=== PATIENT | male | born 1965 | race Caucasian/White ===

== ENCOUNTER → 2024-06-24 | Outpatient (CLI) | payer MEDICAID, SELFPAY ==
--- NOTE | 2024-06-24 09:05 | US_ITS ---
STUDY: ABDOMINAL ULTRASOUND - RIGHT UPPER QUADRANT; ELASTOGRAPHY REASON FOR VISIT: Male, 59 years old. Fatty infiltration of the liver. TECHNIQUE: Ultrasound evaluation of the right upper quadrant was performed with real-time and static chi-scale imaging. Point quantification shear wave elastography was performed ([employer]). TECHNICAL QUALITY: Adequate. COMPARISON: None. FINDINGS: Liver: The liver is enlarged and measures 20 cm. There is increased echogenicity consistent with fatty infiltration. The bile ducts are within normal limits. There is hepatic color flow. The direction of portal flow is hepatopetal. There is no demonstrated mass lesion. Median liver stiffness measured 9.2 kPa. Gallbladder: Normal distended gallbladder. The gallbladder wall measures 2.6 mm. There is a negative sonographic Batista''s sign. There is no pericholecystic fluid. There are no gallstones. Common Bile Duct (C.B.D.): The common bile duct measures 4.0 mm. Pancreas: The pancreas is not visualized due to overlying bowel gas. Right Kidney: Normal size of the right kidney. The right kidney measures 11 cm x 6.8 cm x 7 cm. Normal renal cortex. The right cortex measures 2.1 cm. There is no demonstrated renal mass or cyst. There is no right hydronephrosis. US/ABD Limited w/ Elastography IMPRESSION: 1. Liver stiffness measures 9.2 kPa compatible with F2-F3 (Mild to moderate liver fibrosis) Metavir score. 2. Hepatomegaly and fatty infiltration of the liver. Electronically Signed: Chad Johnson MD at 12:32 EST ,
== END | disposition home or self-care (01) ==
PROVIDERS: PCP Family Medicine; Referring Provider Nurse Practitioner Acute Care; Visit Provider Nurse Practitioner Acute Care
DX: E88.89 Other specified metabolic disorders (principal); R10.13 Epigastric pain; R93.89 Abnormal findings on diagnostic imaging of other specified body structures
CPT/HCPCS: 76705; 76981

== ENCOUNTER 2025-02-14 14:17 | Day surgery (SDC) | payer MEDICAID, SELFPAY ==
[2025-02-14] VITALS (8 sets, daily range): BP systolic 119–134; BP diastolic 90–99; PULSE 90–92; RESP 16; TEMP 36.3–36.4; O2SAT 95–98; BMI 29.2
[2025-02-14] MEDS: Lactated Ringers 1,000 ML 15 ML IV (14:47)
--- NOTE | 2025-02-14 14:52 | PCM.HP.STD ---
HPI - General General Date of Admission: 02/14/25 Date of Service: 02/14/25 Chief Complaint: Abdominal pain HPI Narrative VERNON BRANTLEY, is a 59 M who presents with the Chief Complaint: abdominal pain Details: He was seen in ED for c/o abdominal pain and CT was revealing for jejuno-jejunal intussuception on 09/29/2023, he was again seen in ED on 10/04/[address] at that time revealed resolution of intussuception. CT was also revealing for mild circumferential thickening of the lower esophagus suggestive of chronic reflux esophagitis, possible small gastric diverticulum. As well as hepatic steatosis. PMH is significant for TBI and he resides in a [facility]. 10/04/2023 CT No acute abnormalities within the abdomen or pelvis. The previously described jejuno-jejunal intussusception is no longer visualized. 09/29/2023 CT Diffuse hypoattenuation the liver suggestive of hepatic steatosis. Circumferential thickening of the imaged lower esophageal wall is most consistent with chronic reflux esophagitis. Within the mid small bowel, jejunum in the left hemiabdomen, there is a targetoid appearance of the bowel measuring approximately 4.4 cm - denies any weight loss - denies any N/V - denies any HB - denies any dysphagia - denies any pain - denies any diarrhea or constipation - denies any changes in appetite - sister - POA - Debbie - reports a h/o drinking a 6 pack of beer or more a day - denies any h/o NC or CVA - denies any lung disease LABS 10/04/2023 Glucose 255, otherwise CMP, CBC and Lipase unremarkable RECOMMEND Elastography Hep Labs EGD and Colonoscopy (PLETAL obtain approval to hold 7d prior to procedure) [facility] Medical History Schizophrenia Dementia Depression Anxiety Substance abuse Insulin dependent diabetes mellitus Diabetes Hepatitis Injury of head and neck TIA (transient ischemic attack) Former smoker Hypertension Personal history of traumatic brain injury Chronic obstructive pulmonary disease, unspecified Generalized anxiety disorder Alzheimer's disease with late onset Impulse disorder, unspecified Peripheral vascular disease, unspecified Hypertensive heart disease without heart failure Insomnia Alcohol abuse Type 2 diabetes mellitus Constipation, unspecified Chronic viral hepatitis C Bipolar disorder, unspecified Opioid dependence, uncomplicated Paranoid schizophrenia Diffuse traumatic brain injury with loss of consciousness of unspecified duration, sequela Home Medications ?Medication ?Instructions ?Recorded ?Last Taken ?Type allopurinol 100 mg tablet 100 mg PO QDAY 04/28/24 Unknown History aripiprazole 10 mg tablet (Abilify) 10 mg PO QDAY 04/28/24 Unknown History aspirin 81 mg tablet,delayed 81 mg PO QDAY 04/28/24 Unknown History release (Adult Aspirin Regimen) atorvastatin 40 mg tablet 40 mg PO QHS 04/28/24 Unknown History bisacodyl 10 mg rectal suppository 10 mg DE QDAY PRN constipation 04/28/24 Unknown History (Dulcolax (bisacodyl)) budesonide-formoterol HFA 80 2 puff inhalation BID 04/28/24 Unknown History mcg-4.5 mcg/actuation aerosol inhaler (Symbicort) calcium carbonate (Calcium 500) 1,000 mg PO QDAY PRN REFLUX 04/28/24 Unknown History cholecalciferol (vitamin D3) 50 50 mcg PO SA 04/28/24 Unknown History mcg (2,000 unit) capsule cilostazol 100 mg tablet 100 mg PO BID 04/28/24 Unknown History clonazepam 1 mg tablet 1 mg PO TID 04/28/24 Unknown History dulaglutide 4.5 mg/0.5 mL 4.5 mg subcut MORELOS 04/28/24 01/19/25 History [facility] Held on 02/12/25. Instructions: ON HOLD SINCE 01/19/2025 FOR PROCEDURE-PER NURSE duloxetine 60 mg capsule,delayed 60 mg PO QDAY 04/28/24 Unknown History release insulin glargine 100 unit/mL (3 25 unit subcut HS 04/28/24 Unknown History mL) subcutaneous pen (Lantus Solostar U-100 Insulin) ipratropium 0.5 mg-albuterol 3 mg 3 ml inhalation Q4-6H PRN 04/28/24 Unknown History (2.5 mg base)/3 mL nebulization shortness of breath or wheezing soln lisinopril 2.5 mg tablet 2.5 mg PO QDAY 04/28/24 Unknown History magnesium hydroxide 400 mg/5 mL 30 ml PO QDAY PRN constipation 04/28/24 Unknown History oral suspension (Milk of Magnesia) melatonin 3 mg capsule 3 mg PO HS 04/28/24 Unknown History metformin 1,000 mg tablet 1,000 mg PO BID 04/28/24 Unknown History metoprolol succinate 25 mg 25 mg PO QDAY 04/28/24 Unknown History tablet,extended release 24 hr metronidazole 0.75 % topical gel 1 applic topical BID PRN SKIN 04/28/24 Unknown History multivitamin 1 tab PO QDAY 04/28/24 Unknown History pantoprazole 40 mg tablet,delayed 40 mg PO BID 04/28/24 Unknown History release (Protonix) polyethylene glycol 3350 17 17 g PO DAILY 04/28/24 Unknown History gram/dose oral powder (Miralax) quetiapine 100 mg tablet (Seroquel) 100 mg PO BID 04/28/24 Unknown History trazodone 50 mg tablet 50 mg PO QHS 04/28/24 Unknown History gabapentin 600 mg tablet 600 mg PO TID 05/23/24 Unknown History gemfibrozil 600 mg tablet 600 mg PO BID 05/23/24 Unknown History acetaminophen 500 mg tablet 500 mg PO TID 10/17/24 Unknown History (Acetaminophen Extra Strength) guaifenesin 100 mg/5 mL oral syrup 200 mg PO Q6H PRN cough 10/17/24 Unknown History Allergy/AdvReac Type Severity Reaction Status Date / Time cephalexin Allergy Other Verified 10/17/24 09:43 Social History Smoking Status: Current every day smoker tobacco type: cigarettes ROS Constitutional Constitutional: Denies fatigue, fever(s), poor appetite, weight gain or weight loss Gastrointestinal Gastrointestinal: Denies belching, bloating, change in bowel habits, change in stool character, chewing difficulty, coffee ground emesis, constipation, cramping, diarrhea, dyspepsia, dysphagia, early satiety, excessive flatus, fecal incontinence, heartburn, hematemesis, hematochezia, hemorrhoids, loose stools, melena, nausea, odynophagia, rectal bleeding, tenesmus, vomiting or weight changes Physical Exam Const alert, oriented x3, no apparent distress and healthy appearing General Appearance: cooperative GI normal to inspection, nondistended, normoactive bowel sounds, soft to palpation, non-tender and non-distended Percussion: normal to percussion Rectal Exam: deferred Assessment & Plan Assessment/Plan (1) Hepatomegaly: (2) Steatosis of liver: (3) Abnormal finding on imaging: (4) Epigastric pain: (5) Steatosis: PLAN: Assessment and Plan Assessment and Plan (1) Abdominal pain: Qualifiers: Abdominal location: epigastric Qualified Code(s): R10.13 - Epigastric pain (2) Steatosis: Status: Acute (3) Epigastric pain: Status: Acute (4) Abnormal finding on imaging: Status: Acute Orders: Orders ABD Limited w/ Elastography Today E88.89 - Other specified metabolic disorders, R10.13 - Epigastric pain, R93.89 - Abnormal findings on diagnostic imaging of other specified body structures Hepatitis A AB, Total Today E88.89 - Other specified metabolic disorders, R10.13 - Epigastric pain, R93.89 - Abnormal findings on diagnostic imaging of other specified body structures Hepatitis B Core Ab Total Today E88.89 - Other specified metabolic disorders, R10.13 - Epigastric pain, R93.89 - Abnormal findings on diagnostic imaging of other specified body structures Hepatitis B Surface Antibody Today E88.89 - Other specified metabolic disorders, R10.13 - Epigastric pain, R93.89 - Abnormal findings on diagnostic imaging of other specified body structures Hepatitis B Surface Antigen Today E88.89 - Other specified metabolic disorders, R10.13 - Epigastric pain, R93.89 - Abnormal findings on diagnostic imaging of other specified body structures Hepatitis C Antibody Today E88.89 - Other specified metabolic disorders, R10.13 - Epigastric pain, R93.89 - Abnormal findings on diagnostic imaging of other specified body structures EGD 6 Weeks E88.89 - Other specified metabolic disorders, R10.13 - Epigastric pain, R93.89 - Abnormal findings on diagnostic imaging of other specified body structures Plan 59y/o male presents for consultation of abdominal pain. He was seen in ED for c/o abdominal pain and CT was revealing for jejuno-jejunal intussuception on 09/29/2023, he was again seen in ED on 10/04/[address] at that time revealed resolution of intussuception. CT was also revealing for mild circumferential thickening of the lower esophagus suggestive of chronic reflux esophagitis, possible small gastric diverticulum. As well as hepatic steatosis. PMH is significant for TBI and he resides at [facility]. He presently denies any abdominal pain, weight loss, N/V or change in bowel habits. Denies any HB or dysphagia and reports no changes with PO intake. Abdominal exam today is remarkable for epigastric tenderness. I recommend he continue pantoprazole 40mg daily and schedule EGD. In terms of liver steatosis, I recommend Elastography and Hepatitis panel with vaccination for HAV and HBV if Ab are nul. He should return to ED with any recurrent acute abdominal pain. I did attempt to contact Debbie (SERGO) during OV today and there as no answer. 1. EGD 2. Obtain approval to hold Pletal (cilostazol) 5-7 days prior to EGD 3. Continue pantoprazole 40mg daily 4. Elastography 5. Hepatitis Panel 6. Follow-up in 3 months Plan Details Follow Up: 3 Months
--- NOTE | 2025-02-14 14:59 | PCM.PRE.AN2 ---
ASA Classification* ASA Classification ASA Classification: 3 Assessment & Plan Anesthesia* Anesthesia Assessment Anesthesia Assessment: Discussed sedation and/or anesthesia options, risks, benefits, and alternatives with patient/parents/legal guardian/POA. Questions invited. The patient/parents/legal guardian/POA seems to understand and agrees to proceed with anesthesia plan. Reviewed the physical assessment, medical history, allergy history and patient home medications list prior to surgery/procedure/anesthetic and documented any changes. Performed airway and anesthesia risk assessments. Anesthesia Type Anesthesia Type: MAC History Source History Obtained from:: Patient and Chart Anesthesia Focused Assessment* Temperature: 97.6 F Pulse Rate: 90 Blood Pressure: 120/96 Respiratory Rate: 16 Pulse Ox: 97 Oxygen Delivery Method: Room Air Airway Assessment Mouth opens: >3 cm Mallampati Score: II Teeth Condition: Dentures (Edentulous) Neck Range of motion (ROM): Limited ROM Labs Anesthesia Preop lab: CBC WBC 8.4 k/mm3 (4.4-11.0) 03/17/13 11:42 03/17/13 RBC 4.97 M/mm3 (4.6-6.2) 03/17/13 11:42 03/17/13 Hgb 16.2 g/dl (13.0-16.5) 03/17/13 11:42 03/17/13 Hct 45.6 % (40-54) 03/17/13 11:42 03/17/13 Plt Count 243 K/mm3 (150-450) 03/17/13 11:42 03/17/13 CHEMISTRY Potassium 4.2 mmol/L (3.5-5.1) 03/17/13 11:42 03/17/13 Sodium 137 mmol/L (136-145) 03/17/13 11:42 03/17/13 BUN 10 mg/dL (7-18) 03/17/13 11:42 03/17/13 Creatinine 0.8 mg/dL (0.8-1.3) 03/17/13 11:42 03/17/13 Glucose 104 mg/dL (70-110) 03/17/13 11:42 03/17/13 COAG Pre-Assessment Diagnosis/Proposed Procedure Planned Operative Procedure(s): EGD Anesthesia History Anesthesia History - casting and locker room servicer: Anesthesia History - casting and locker room servicer Hx Hospitalization Any Problems With Anesthesia Cholinesterase deficiency You/Your Family Experience fever (hyperthermia) with Relationship Recent Exposure to Contagious No 02/14/25 14:55 Disease Does patient have nerve No 02/13/25 08:31 stimulator Patient instructed to have device shut off --Does patient have Pacemaker No 02/14/25 14:55 or ICD? When Was Last Pacemaker Check QUESTION #4 FULL TEXT: You/Your Family Experience fever (hyperthermia) with Anesthesia Last Oral Intake Last Oral intake: Last Oral Intake NPO since 20:00 02/14/25 14:55 Meds taken in AM with sips of water? Meds patient instructed to take am of surgery PONV PONV - casting and locker room servicer: PONV - casting and locker room servicer Female No 02/13/25 08:31 HX of Motion Sickness No 02/13/25 08:31 HX of N/V After Surgery No 02/13/25 08:31 Non-Smoker No 02/13/25 08:31 Duration of Surgery greater No 02/13/25 08:31 than 60 minutes Number of Risk Factors PONV Score Height & Weight Height & Weight: Anesthesia: Height & Weight Height 5 ft 9 in 02/14/25 14:55 Weight: 90 kg 02/14/25 14:55 Body Mass Index (BMI) 29.2 02/14/25 14:55 Respiratory Assessment Respiratory Assessment - casting and locker room servicer: Respiratory Tract Infection Hx - casting and locker room servicer Hx Respiratory Tract Infection No 02/13/25 08:31 STOP Sleep Apnea STOP Sleep Apnea - casting and locker room servicer: STOP Sleep Apnea - casting and locker room servicer Hx Hypertension Yes 02/13/25 08:31 Hx Sleep Apnea No 02/13/25 08:31 CPAP BIPAP Do you snore loudly (louder No 02/13/25 08:31 than talking or can be heard Do you often feel tired/ No 02/13/25 08:31 fatigued/ sleepy during daytime? Has anyone observed you stop No 02/13/25 08:31 breathing during sleep? STOP Results Negative 02/13/25 08:31 QUESTION #5 FULL TEXT : Do you snore loudly (louder than talking or can be heard through closed doors)? Tobacco Use History Tobacco Use History - casting and locker room servicer: Tobacco Use History - casting and locker room servicer Tobacco Use Smoking Status Current every day smoker 02/13/25 08:31 Hx Tobacco Use Yes 02/13/25 08:31 Years Smoking Packs Smoked per Day Smoking Cessation Date was within the last 15 years Hx Smoking Cessation Date Hx Smoking Cessation Counseling Hematologic Medial History Hematologic Hx - casting and locker room servicer: Hematologic Medical Hx - identification clerk Hx of Blood Transfusion No 02/13/25 08:31 Hx of Transfusion in last 3 No 02/13/25 08:31 Months Date of Last Transfusion (if within last 3 months) Ever experience any problems No 02/13/25 08:31 with transfusion(s)? Specify any problems Hx of Preganancy in last 3 N/A 02/13/25 08:31 Months Nurse Filling Out Transfusion VCHRISTIN 02/13/25 08:31 & Questions: Date: 02/13/25 02/13/25 08:31 Time: 08:32 02/13/25 08:31 Patient unable to answer at this time (ie. confused, unrespo /Reproduction History /Reproductive History - casting and locker room servicer: /Reproductive Hx- casting and locker room servicer Hx Now Gestational Age (in weeks): EDC: Hx Hx Para Hx Section SAB Active Medications Active Medications: Current Medications Generic Name Dose Route Start Last Admin Trade Name Freq PRN Reason Stop Dose Admin Lactated Ringer's 1,000 mls @ 15 mls/hr 02/14/25 14:30 02/14/25 14:47 IV 15 mls/hr .Q48H MISSAEL Administration PFSH Medical History Schizophrenia Dementia Depression Anxiety Substance abuse Insulin dependent diabetes mellitus Diabetes Hepatitis Injury of head and neck TIA (transient ischemic attack) Former smoker Hypertension Personal history of traumatic brain injury Chronic obstructive pulmonary disease, unspecified Generalized anxiety disorder Alzheimer's disease with late onset Impulse disorder, unspecified Peripheral vascular disease, unspecified Hypertensive heart disease without heart failure Insomnia Alcohol abuse Type 2 diabetes mellitus Constipation, unspecified Chronic viral hepatitis C Bipolar disorder, unspecified Opioid dependence, uncomplicated Paranoid schizophrenia Diffuse traumatic brain injury with loss of consciousness of unspecified duration, sequela Home Medications ?Medication ?Instructions ?Recorded ?Last Taken ?Type allopurinol 100 mg tablet 100 mg PO QDAY 04/28/24 Unknown History aripiprazole 10 mg tablet (Abilify) 10 mg PO QDAY 04/28/24 Unknown History aspirin 81 mg tablet,delayed 81 mg PO QDAY 04/28/24 Unknown History release (Adult Aspirin Regimen) atorvastatin 40 mg tablet 40 mg PO QHS 04/28/24 Unknown History bisacodyl 10 mg rectal suppository 10 mg NV QDAY PRN constipation 04/28/24 Unknown History (Dulcolax (bisacodyl)) budesonide-formoterol HFA 80 2 puff inhalation BID 04/28/24 Unknown History mcg-4.5 mcg/actuation aerosol inhaler (Symbicort) calcium carbonate (Calcium 500) 1,000 mg PO QDAY PRN REFLUX 04/28/24 Unknown History cholecalciferol (vitamin D3) 50 50 mcg PO SA 04/28/24 Unknown History mcg (2,000 unit) capsule cilostazol 100 mg tablet 100 mg PO BID 04/28/24 Unknown History clonazepam 1 mg tablet 1 mg PO TID 04/28/24 Unknown History dulaglutide 4.5 mg/0.5 mL 4.5 mg subcut MORELOS 04/28/24 01/19/25 [facility] Held on 02/12/25. Instructions: ON HOLD SINCE 01/19/2025 FOR PROCEDURE-PER NURSE duloxetine 60 mg capsule,delayed 60 mg PO QDAY 04/28/24 Unknown History release insulin glargine 100 unit/mL (3 25 unit subcut HS 04/28/24 Unknown History mL) subcutaneous pen (Lantus Solostar U-100 Insulin) ipratropium 0.5 mg-albuterol 3 mg 3 ml inhalation Q4-6H PRN 04/28/24 Unknown History (2.5 mg base)/3 mL nebulization shortness of breath or wheezing soln lisinopril 2.5 mg tablet 2.5 mg PO QDAY 04/28/24 Unknown History magnesium hydroxide 400 mg/5 mL 30 ml PO QDAY PRN constipation 04/28/24 Unknown History oral suspension (Milk of Magnesia) melatonin 3 mg capsule 3 mg PO HS 04/28/24 Unknown History metformin 1,000 mg tablet 1,000 mg PO BID 04/28/24 Unknown History metoprolol succinate 25 mg 25 mg PO QDAY 04/28/24 Unknown History tablet,extended release 24 hr metronidazole 0.75 % topical gel 1 applic topical BID PRN SKIN 04/28/24 Unknown History multivitamin 1 tab PO QDAY 04/28/24 Unknown History pantoprazole 40 mg tablet,delayed 40 mg PO BID 04/28/24 Unknown History release (Protonix) polyethylene glycol 3350 17 17 g PO DAILY 04/28/24 Unknown History gram/dose oral powder (Miralax) quetiapine 100 mg tablet (Seroquel) 100 mg PO BID 04/28/24 Unknown History trazodone 50 mg tablet 50 mg PO QHS 04/28/24 Unknown History gabapentin 600 mg tablet 600 mg PO TID 05/23/24 Unknown History gemfibrozil 600 mg tablet 600 mg PO BID 05/23/24 Unknown History acetaminophen 500 mg tablet 500 mg PO TID 10/17/24 Unknown History (Acetaminophen Extra Strength) guaifenesin 100 mg/5 mL oral syrup 200 mg PO Q6H PRN cough 10/17/24 Unknown History Allergy/AdvReac Type Severity Reaction Status Date / Time cephalexin Allergy Other Verified 02/14/25 14:59 Social History Smoking Status: Current every day smoker tobacco type: cigarettes Review of Systems (Anesthesia) ROS Narrative System reviewed and no additional complaints, except as documented.
--- NOTE | 2025-02-14 15:15 | EGD_PTH ---
PATIENT: VERNON BRANTLEY LOC: EN U#:[id number] AGE/SX: 59/M ROOM: RE02/14/[address]: Dr. Dejuan Singh DO : 1965 BED: DIS: 02/14/2025 SPEC #: [id number] RECD: 02/14/25 17:03 STATUS: RICHARD YULIANA #: [id number] MELANIE: 02/14/25 15:[address]: Dejuan Singh DEPT: SURGICAL PATHOLOGY RECD BY: Erick Alvarez ENTERED: 02/15/25 10:40 SP TYPE: EGD BIOPSY SHITAL DR: Dr. Russel Ibarra MD Tissues: A - Gastric mucous membrane B - Gastric mucous membrane Procedures: Surgery Specimen Level IV HEADER OPERATION: EGD with biopsies PRE-OP DIAGNOSIS: Epigastric pain TISSUE SUBMITTED: A- Gastric body biopsy, B- Gastric antrum biopsy MICROSCOPIC DIAGNOSIS A. Gastric body, biopsy: - Oxyntic mucosa with a few mildly dilated fundic glands. - Negative for Helicobacter-like organisms (H&E). B. Gastric antrum, biopsy: - Oxyntic mucosa with slight chronic inflammation. - Negative for Helicobacter-like organisms (H&E). MICROSCOPIC DESCRIPTION Slides are reviewed. GROSS DESCRIPTION A. Received in fixative is one container labeled with the patient's name and designated Gastric body biopsy. The specimen consists of four irregular fragments of light [place] soft tissue that measure 0.1 to 0.6 cm. The specimen is totally submitted in one cassette. B. Received in fixative is one container labeled with the patient's name and designated Gastric antrum biopsy. The specimen consists of two irregular fragments of light [place] soft tissue that measure 0.4 and 0.6 cm. The specimen is totally submitted in one cassette. DC 02/15/2025 CPT:51670o9
--- NOTE | 2025-02-14 15:39 | OP.EGD_ITS ---
Patient Name: Iraj Odonnell Procedure Date: 02/14/2025 3:23 PM Date of : 1965 Age: 59 Procedure: Upper GI endoscopy Indications: Functional Dyspepsia Providers: Dejuan Singh DO Medicines: Monitored Anesthesia Care Patient Profile: This is a 59 year old male. Refer to note in patient chart for documentation of history and physical. Patient has symptoms of chronic abdominal cramping, acute epigastric abdominal pain, chronic dyspepsia and chronic nausea. Complications: No immediate complications. Procedure: Pre-Anesthesia Assessment: - Prior to the procedure, a History and Physical was performed, and patient medications and allergies were reviewed. The patient is competent. The risks and benefits of the procedure and the sedation options and risks were discussed with the patient. All questions were answered and informed consent was obtained. Patient identification and proposed procedure were verified by the physician in the pre-procedure area. Mental Status Examination: alert and oriented. Airway Examination: normal oropharyngeal airway and neck mobility. Respiratory Examination: clear to auscultation. CV Examination: normal. Prophylactic Antibiotics: The patient does not require prophylactic antibiotics. Prior Anticoagulants: The patient has taken no anticoagulant or antiplatelet agents except for NSAID medication. ASA Grade Assessment: II - A patient with mild systemic disease. After reviewing the risks and benefits, the patient was deemed in satisfactory condition to undergo the procedure. The anesthesia plan was to use monitored anesthesia care (MAC). Immediately prior to administration of medications, the patient was re-assessed for adequacy to receive sedatives. The heart rate, respiratory rate, oxygen saturations, blood pressure, adequacy of pulmonary ventilation, and response to care were monitored throughout the procedure. The physical status of the patient was re-assessed after the procedure. After obtaining informed consent, the endoscope was passed under direct vision. Throughout the procedure, the patient's blood pressure, pulse, and oxygen saturations were monitored continuously. The Endoscope was introduced through the mouth, and advanced to the fourth part of the duodenum. Small bowel enteroscopy was deemed necessary. The upper GI endoscopy was accomplished with ease. Scope In: 3:33:08 PM Scope Out: 3:34:48 PM Total Procedure Duration Time 0 hours 1 minute 40 seconds Findings: The examined esophagus was normal. Diffuse prominent gastric folds were found in the entire examined stomach. Biopsies were taken with a cold forceps for histology. Verification of patient identification for the specimen was done. Estimated blood loss was minimal. Biopsies were taken with a cold forceps for Helicobacter pylori testing. Verification of patient identification for the specimen was done. Estimated blood loss was minimal. No gross lesions were noted in the entire examined duodenum. Impression: - Normal esophagus. - Enlarged gastric folds. Biopsied. - No gross lesions in the entire examined duodenum. Recommendation: - Discharge patient to home. - Resume previous diet. - Continue present medications. - Await pathology results. Procedure Code(s): --- Professional --- 23558, Small intestinal endoscopy, enteroscopy beyond second portion of duodenum, not including ileum; with biopsy, single or multiple CPT copyright 2021 [employer]. All rights reserved. The codes documented in this report are preliminary and upon shoe shiner review may be revised to meet current compliance requirements. Dejuan Singh DO 02/14/2025 3:38:51 PM This report has been signed electronically. Number of Addenda: 0 Note Initiated On: 02/14/2025 3:23 PM
--- NOTE | 2025-02-14 15:39 | OP.PROVAT_ITS ---
02/14/2025 Jay Ibarra Re : Upper GI endoscopy procedure for Iraj Odonnell Dear Stacey This procedure was performed on Friday, February 14, 2025. My impressions and recommendations are as follows: Impressions : - Normal esophagus. - Enlarged gastric folds. Biopsied. - No gross lesions in the entire examined duodenum. Recommendations : - Discharge patient to home. - Resume previous diet. - Continue present medications. - Await pathology results. My findings are described in the full procedure note, which is enclosed. If I can be of further assistance, please feel free to contact me at . Sincerely, Dejuan Singh DO 02/14/2025 3:38:51 PM This report has been signed electronically.
--- NOTE | 2025-02-14 15:42 | PCM.POST.ANE ---
Anesthesia: Postop Eval I Current Vital Signs Temperature: 97.3 F Pulse Rate: 90 Blood Pressure: 134/90 Respiratory Rate: 16 Pulse Ox: 98 Oxygen Delivery Method: Room Air Assessment Airway patent: Yes Spontaneous unlabored respirations: Yes Mental status: Awake and Calm nausea: No Vomiting: No Anesthesia Complication: No Fluid Hydration Crystalloid volume administer (ml): 200 Total IV fluid infused: 200 Progress Note Anesthesia document: Postop Eval 1 completed: Yes
--- NOTE | 2025-02-14 16:32 | POSTOPAN2_ITS ---
Anesthesia Postop Eval I Sum Postop Eval Completion status Anesthesia document: Postop Eval 1 completed: Yes Anesthesia Postop Eval I Summary Anesthesia Postop Eval I Summary: Anesthesia Postop Eval I: Assessment Summary Airway patent Yes 02/14/25 15:42 COMPUTER INFORMATION SYSTEMS [email or web address].[email or web address] Spontaneous unlabored Yes 02/14/25 15:42 COMPUTER INFORMATION SYSTEMS [email or web address].[email or web address] respirations Mental status Awake,Calm 02/14/25 15:42 COMPUTER INFORMATION SYSTEMS PROFESSOR.[email or web address] nausea No 02/14/25 15:42 COMPUTER INFORMATION SYSTEMS PROFESSOR.[email or web address] Vomiting No 02/14/25 15:42 COMPUTER INFORMATION SYSTEMS PROFESSOR.[email or web address] Anesthesia Postop Eval I: Fluid Summary Crystalloid volume administer 200 02/14/25 15:42 COMPUTER INFORMATION SYSTEMS [email or web address].[email or web address] (ml) Colloids volume administered ( ml) Blood Product volume administered (ml) Total IV fluid infused 200 02/14/25 15:42 COMPUTER INFORMATION SYSTEMS PROFESSOR.[email or web address] Anesthesia Postop Eval I: Summary Notes Anesthesia Complication No 02/14/25 15:42 COMPUTER INFORMATION SYSTEMS PROFESSOR.[email or web address] Anesthesia Complication Comment: Post-operative progress note Anesthesia: Postop Eval II Evaluation Mental status: Awake Pain Level: 0 nausea: No Vomiting: No
--- NOTE | 2025-02-14 16:32 | PCM.POSTANE2 ---
Anesthesia Postop Eval I Sum Postop Eval Completion status Anesthesia document: Postop Eval 1 completed: Yes Anesthesia Postop Eval I Summary Anesthesia Postop Eval I Summary: Anesthesia Postop Eval I: Assessment Summary Airway patent Yes 02/14/25 15:42 FURNACE CHARGING MACHINE OPERATOR.[email or web address] Spontaneous unlabored Yes 02/14/25 15:42 FURNACE CHARGING MACHINE OPERATOR.[email or web address] respirations Mental status Awake,Calm 02/14/25 15:42 FURNACE CHARGING MACHINE OPERATOR.[email or web address] nausea No 02/14/25 15:42 FURNACE CHARGING MACHINE OPERATOR.[email or web address] Vomiting No 02/14/25 15:42 FURNACE CHARGING MACHINE OPERATOR.[email or web address] Anesthesia Postop Eval I: Fluid Summary Crystalloid volume administer 200 02/14/25 15:42 FURNACE CHARGING MACHINE OPERATOR.[email or web address] (ml) Colloids volume administered ( ml) Blood Product volume administered (ml) Total IV fluid infused 200 02/14/25 15:42 FURNACE CHARGING MACHINE OPERATOR.[email or web address] Anesthesia Postop Eval I: Summary Notes Anesthesia Complication No 02/14/25 15:42 FURNACE CHARGING MACHINE OPERATOR.[email or web address] Anesthesia Complication Comment: Post-operative progress note Anesthesia: Postop Eval II Evaluation Mental status: Awake Pain Level: 0 nausea: No Vomiting: No
== END 2025-02-14 16:19 | disposition home or self-care (01) ==
LOC: EN 14:23 → AC 14:23
PROVIDERS: PCP Family Medicine; Referring Provider Family Medicine; Visit Provider Internal Medicine Gastroenterology
PROC: 0DJ08ZZ Inspection of Upper Intestinal Tract, Via Natural or Artificial Opening Endoscopic (ICD-10-PCS; CPT 43235; principal; 2025-02-14 15:10)
DX: K29.50 Unspecified chronic gastritis without bleeding (principal); F20.0 Paranoid schizophrenia; F31.9 Bipolar disorder, unspecified; J44.9 Chronic obstructive pulmonary disease, unspecified; E11.9 Type 2 diabetes mellitus without complications; Z79.4 Long term (current) use of insulin; K76.0 Fatty (change of) liver, not elsewhere classified; I10 Essential (primary) hypertension; F41.1 Generalized anxiety disorder; G47.00 Insomnia, unspecified; F17.210 Nicotine dependence, cigarettes, uncomplicated; Z86.73 Personal history of transient ischemic attack (TIA), and cerebral infarction without residual deficits; Z79.51 Long term (current) use of inhaled steroids; Z79.82 Long term (current) use of aspirin; Z79.85 Long-term (current) use of injectable non-insulin antidiabetic drugs; Z79.899 Other long term (current) drug therapy; Z79.84 Long term (current) use of oral hypoglycemic drugs
CPT/HCPCS: 44361; 82962; 88305; J2405

== ENCOUNTER → 2025-03-13 | Outpatient (CLI) | payer MEDICAID, SELFPAY ==
[2025-03-13 10:30] LABS: Hematocrit 40.5 % (40-54); Hemoglobin 13.7 g/dL (13.0-16.5); Immature Granulocytes Count 0.020 X10^3/uL (0.0-0.0); Mean Corp Hgb Conc 33.8 g/dL (32-36); Mean Corpuscular Volume 87.9 fL (80-94); Mean Platelet Vol. 9.8 fl (6.2-12.0); NRBC Flagged by Analyzer 0 % (0-5); Platelet Count 299 K/mm3 (150-450); RBC Distribution Width CV 13.2 % (11.6-14.6); RBC Distribution Width SD 42.4 fl (35.1-43.9); Red Blood Count 4.61 M/mm3 (4.6-6.2); White Blood Count 7.4 K/mm3 (4.4-11.0)
[2025-03-13 12:04] LABS: AST(SGOT) 21 U/L (<=37); Alanine Aminotransfer ALT/SGPT 24 U/L (<=46); Albumin, Serum 4.6 g/dL (3.5-5.0); Alkaline Phosphatase 62 U/L (40-129); Anion Gap 17 (5-15); BUN 12 mg/dL (4-19); BUN/Creat Ratio 14.6 RATIO (10-20); Calcium,Total 9.7 mg/dL (7.6-11.0); Carbon Dioxide 21.4 mmol/L (21.0-32.0); Chloride 98 mmol/L (98-108); Globulin 2.7 g/dL (2.2-4.2); Glucose 300 mg/dL (70-99); Potassium 4.3 mmol/L (3.3-5.1)
[2025-03-13 15:27] LABS: Hepatitis B Surface Antigen Nonreactive (Nonreactive); Hepatitis C Antibody REAC (Nonreactive)
[2025-03-14 15:08] LABS: HCV Quant. RNA PCR HCV Not Detected IU/mL (.)
== END | disposition home or self-care (01) ==
LOC: LAB 09:54
PROVIDERS: PCP Family Medicine; Referring Provider Nurse Practitioner Acute Care; Visit Provider Nurse Practitioner Acute Care
DX: E88.89 Other specified metabolic disorders (principal); R10.13 Epigastric pain; R93.89 Abnormal findings on diagnostic imaging of other specified body structures; R16.0 Hepatomegaly, not elsewhere classified; K76.0 Fatty (change of) liver, not elsewhere classified
CPT/HCPCS: 36415; 80053; 85025; 86704; 86706; 86708; 86803; 87340; 87522